=== PATIENT | male | born 1930 | race Caucasian/White ===

== ENCOUNTER 2016-08-11 16:43 | Inpatient (IN) | payer OTHER ==
[~2016-08-11] VITALS: Ht 185.4 cm; Wt 74.5 kg
[~2016-08-11 16:43] MED LIST: ALEVE220 MG PO; AMLOD-VALSA-HC1 EAC1 PO; ASPIR 8181 M1 PO; ASPIRIN81 M2 PO; BYSTOLIC10 MG PO; DOXAZOSIN MESYLA4 MG PO; EXFORGE 5/321 TABLET PO; HYDROCHLOROTHIA25 MG PO; METFORMIN HCL500 M1 PO; METFORMIN HCL500 MG PO; PRAVASTATIN SOD80 MG PO; PROAIR HFA8.5 GM IH; XARELTO15 MG PO; XARELTO20 MG PO
[2016-08-11 17:31] LABS: HEMATOCRIT 39.7 % (38.0-50.0); MCH 29.9 PG (29.0-34.0); MCV 90.6 FL (86-99); MEAN PLAT.VOLUME 9.8 uM^3 (9.0-12.4); PLATELET COUNT 158 K/uL (156-360); RBC DIS.WIDTH-CV 11.7 % (11.8-14.6); RBC DIS.WIDTH-SD 39.1 % (39-53); RED BLOOD COUNT 4.38 M/uL (4.00-5.50)
[2016-08-11 17:46] LABS: CHLORIDE 99 mEq/L (99-109); POTASSIUM 3.7 mEq/L (3.7-5.4); SODIUM 140 mEq/L (136-147)
[2016-08-11 17:47] LABS: GLUCOSE 177 mg/dL (70-99)
[2016-08-11 17:49] LABS: ANION GAP 11 MEQ/L (2-14)
[2016-08-11 17:51] LABS: GFR ESTIMATE (CALCULATED) > 59 mL/min/
[2016-08-11 17:52] LABS: UREA NITROGEN (BUN) 17 mg/dL (9-23)
[2016-08-11 17:53] LABS: TROP-I INTERPRETATION NEGATIVE; TROPONIN-I 0.01 ng/mL (0.0-0.30)
[2016-08-11] MEDS ORDERED: BYSTOLIC5 MG PO (19:55)
[2016-08-11] MEDS ORDERED: BYSTOLIC2.5 MG PO (19:55)
[2016-08-11] MEDS ORDERED: CARDURA2 M1 PO (19:56)
[2016-08-11] MEDS ORDERED: LOW DOSE ASPIRI81 M1 PO (19:57)
[2016-08-11] MEDS ORDERED: XARELTO20 MG PO (19:58)
[2016-08-11 22:46] VITALS: BP 137/74
[2016-08-11 23:58] LABS: TROP-I INTERPRETATION POSITIVE; TROPONIN-I 0.61 ng/mL (0.0-0.30)
[2016-08-12] VITALS (7 sets, daily range): BP systolic 128–165; BP diastolic 65–81
[2016-08-12 06:45] LABS: Estimated Average Glucose 166 mg/dL (70-123); HEMOGLOBIN A1c (GLYCOHEMOGLOB) 7.4 % HGB (Below 5.7)
[2016-08-12 07:26] LABS: HEMATOCRIT 37.7 % (38.0-50.0); MCH 30.4 PG (29.0-34.0); MCHC 33.7 G/DL (30.0-36.0); MCV 90.2 FL (86-99); PLATELET COUNT 159 K/uL (156-360); RBC DIS.WIDTH-CV 11.9 % (11.8-14.6); RBC DIS.WIDTH-SD 38.9 % (39-53); RED BLOOD COUNT 4.18 M/uL (4.00-5.50); WHITE BLOOD COUNT 7.7 K/uL (4.1-10.2)
[2016-08-12 07:30] LABS: POINT-OF-CARE METER ID UU13113831
[2016-08-12 07:51] LABS: ALKALINE PHOSPHATASE 36 IU/L (3-129); ANION GAP 8 MEQ/L (2-14); CHLORIDE 101 MEQ/L (99-109); GFR ESTIMATE (CALCULATED) > 59 mL/min/; GLUCOSE 116 mg/dL (70-99); POTASSIUM 3.2 MEQ/L (3.7-5.4); SAMPLE HEMOLYSIS CHECK 0; SAMPLE ICTERIC CHECK 0; SAMPLE LIPEMIA CHECK 0; SODIUM 140 MEQ/L (136-147); TOTAL BILIRUBIN 0.8 MG/DL (0.0-1.0); UREA NITROGEN (BUN) 16 mg/dL (9-23)
[2016-08-12 07:55] LABS: TROP-I INTERPRETATION POSITIVE; TROPONIN-I 0.74 ng/mL (0.0-0.30)
[2016-08-12 11:59] LABS: POINT-OF-CARE METER ID UU13113831
[2016-08-12 16:11] LABS: POINT-OF-CARE METER ID UU14174216
[2016-08-12 21:20] LABS: POINT-OF-CARE METER ID UU13113698
[2016-08-13 03:50] VITALS: BP 146/71
[2016-08-13 07:41] LABS: POINT-OF-CARE METER ID UU13113781
[2016-08-13 07:56] VITALS: BP 142/69
[2016-08-13 08:35] LABS: EOSINOPHIL (%) 2.4 % (0-5); EOSINOPHIL COUNT 0.2 K/uL (0-0.3); HEMATOCRIT 41.7 % (38.0-50.0); IMMATURE GRANULOCYTE (%) 0.7 % (0.0-0.7); IMMATURE GRANULOCYTE COUNT 0.1 K/uL; INSTRUMENT ABS NEUTROPHIL CT 5.2 K/uL; LYMPHOCYTE COUNT 1.3 K/uL (1.0-2.8); MCH 30.3 PG (29.0-34.0); MCHC 33.3 G/DL (30.0-36.0); MEAN PLAT.VOLUME 9.9 uM^3 (9.0-12.4); MONOCYTE (%) 8.4 % (3-12); MONOCYTE COUNT 0.6 K/uL (0-0.8); NEUTROPHIL (%) 70.2 % (45-76); NEUTROPHIL COUNT 5.2 K/uL (1.8-6.4); PLATELET COUNT 159 K/uL (156-360); RBC DIS.WIDTH-SD 40.1 % (39-53); RED BLOOD COUNT 4.58 M/uL (4.00-5.50); WHITE BLOOD COUNT 7.4 K/uL (4.1-10.2)
[2016-08-13 09:03] LABS: ANION GAP 6 MEQ/L (2-14); CHLORIDE 101 MEQ/L (99-109); POTASSIUM 4.1 MEQ/L (3.7-5.4); SAMPLE HEMOLYSIS CHECK 0; SAMPLE ICTERIC CHECK 0; SAMPLE LIPEMIA CHECK 0; SODIUM 138 MEQ/L (136-147)
[2016-08-13 09:04] LABS: GFR ESTIMATE (CALCULATED) > 59 mL/min/; GLUCOSE 143 mg/dL (70-99); UREA NITROGEN (BUN) 19 mg/dL (9-23)
[2016-08-13 11:17] VITALS: BP 131/62
[2016-08-13 15:44] VITALS: BP 118/74
[2016-08-13 16:14] LABS: POINT-OF-CARE METER ID UU13113698
[2016-08-13 19:20] VITALS: BP 160/80
[2016-08-13 23:22] VITALS: BP 140/82
[2016-08-14 03:06] VITALS: BP 146/72
[2016-08-14 07:43] LABS: POINT-OF-CARE METER ID UU13113781
[2016-08-14 07:55] VITALS: BP 133/73
[2016-08-14 13:43] LABS: POINT-OF-CARE METER ID UU13113819
[2016-08-14 16:16] VITALS: BP 162/64
[2016-08-14 16:29] LABS: POINT-OF-CARE METER ID UU13113781
[2016-08-14 20:20] VITALS: BP 132/72
[2016-08-14 23:39] VITALS: BP 142/82
[2016-08-15 04:14] VITALS: BP 111/62
[2016-08-15 06:08] LABS: POINT-OF-CARE METER ID UU13113781
[2016-08-15 07:06] LABS: MCV 90.7 FL (86-99)
[2016-08-15 07:20] VITALS: BP 109/57
[2016-08-15 08:02] LABS: POINT-OF-CARE METER ID UU13113781
[2016-08-15] MEDS ORDERED: XARELTO20 MG PO (10:21)
== END 2016-08-15 12:30 | disposition home or self-care (01) | DRG 282 ==
LOC: EME → EDBD 16:43 → EME 16:43 → EDOF 21:12 → 5WEST 22:06 → 4EAST 08-12 11:12 → 5WEST 08-12 11:12 → 4EAST 08-12 14:58
PROVIDERS: Emergency Medicine; Internal Medicine; Student in an Organized Health Care Education/Training Program
DX: I21.4 Non-ST elevation (NSTEMI) myocardial infarction (principal); I25.10 Atherosclerotic heart disease of native coronary artery without angina pectoris; J44.9 Chronic obstructive pulmonary disease, unspecified; I24.9 Acute ischemic heart disease, unspecified; I48.2 Chronic atrial fibrillation; I10 Essential (primary) hypertension; E78.5 Hyperlipidemia, unspecified; E11.9 Type 2 diabetes mellitus without complications; N40.0 Benign prostatic hyperplasia without lower urinary tract symptoms; M19.90 Unspecified osteoarthritis, unspecified site; Z79.01 Long term (current) use of anticoagulants; Z95.1 Presence of aortocoronary bypass graft; Z86.711 Personal history of pulmonary embolism
CPT/HCPCS: 71010; 80048; 80053; 82948; 83036; 84484; 85014; 85018; 85025; 85027; 93005; 93306; 99281; 99284; C1769; C1887; C1894; G0378; J0360; J1644; J1815; J2250; J3010; J7040